=== PATIENT | female | born 1965 | race Caucasian/White ===

== ENCOUNTER 2017-12-21 07:37 | Day surgery (SDC) | payer OTHER ==
[2017-12-21] MEDS ORDERED: PROPOFOL 60 ML (08:15)
[2017-12-21] MEDS ORDERED: LIDOCAINE 4% SOLUTION 50 ML BTL (09:42)
[2017-12-21] MEDS ORDERED: MIDAZOLAM 1 MG/ML 2 ML INJ ×2 (10:09)
[2017-12-21] MEDS ORDERED: FENTAnyl 50 MCG/ML VIAL (10:10)
== END 2017-12-21 11:54 | disposition home or self-care (01) ==
LOC: GIL 07:37
DX: Z12.11 Encounter for screening for malignant neoplasm of colon (principal); K64.4 Residual hemorrhoidal skin tags; K29.50 Unspecified chronic gastritis without bleeding
CPT/HCPCS: 43239; 88305; 88312